=== PATIENT | female | born 1940 | race Caucasian/White ===

== ENCOUNTER 2025-01-09 16:46 | Emergency (ER) | payer MEDICARE, OTHER, SELFPAY ==
[2025-01-09 17:37] VITALS: BP 189/78
[2025-01-09 18:26] VITALS: BP 195/74; BMI 19.2
[2025-01-09 18:43] LABS: Urine Albumin Negative (Neg - Trace); Urine Bilirubin Negative (Negative); Urine Character Clear (Clear); Urine Color Yellow; Urine Glucose 4+ (Negative); Urine Ketone Negative (Negative); Urine Leukocyte Negative (Negative); Urine Nitrite Negative (Negative); Urine Occult Blood Negative (Negative); Urine Urobilinogen Negative (Neg - 1+)
[2025-01-09] MEDS: NORCO 5/325 1 TABLET PO (19:53)
--- NOTE | 2025-01-10 00:30 | ED.MUSCINJ ---
HPI-Injury
General
Chief Complaint: Musculo-Skeletal Complaint
Source: patient and family (daughter.)
Time Seen by Provider: 01/09/25 18:59
History of Present Illness-Injury
Is this injury a work related problem?: No
Is pt an associate of [facility]?: No
Initial Injury comments:
Patient to ED with complaint of sciatic like pain to left low back, buttocks, thigh. Daughter states symptms started approx 10 days ago. She was given rx for medrol dose pack 1 week ago by PCP. Initially she reported improvement but after course
was complete pain returned. Denies fever/chills, recent illness. No bowel or bladder issues. No weakness in extremities, no saddle parasthesia. Brought to ED by daughter for eval.
Past History
Past History
ED Past Medical History: HTN, Hypercholesterolemia, NIDDM and Hypothyroidism
ED Past Surgical History: None
Social History
Tobacco: Non-smoker
Injury Course
Orders/Labs/Results
Orders:
Orders
01/09/25 18:25
Urinalysis Reflex To Culture Urgent
Date Specimen was Collected: 01/09/25
Time Specimen was Collected: 18:21
01/09/25 18:46
CR Hip - LT w/wo Pel 2-3 Vw* Urgent
Comment:
Reason For Exam: pain
Include a pelvis x-ray?: Yes
01/09/25 19:45
Hydrocodone 5/APAP 325 [[place] 5/325] 1 tablet PO NOW STA
Abnormal Lab Results
01/09/25
18:25
Urine Glucose 4+ A
(Negative)
Update Note
Update Note:
Patient to ED for sciatic like pain to left lower back, radiating thru to LLE. No weakness in extremity. Sensation is intact. No concern for cauda equina. Will place on prednisone taper and give short course of pain medicatoin. Recommend
follow up with ortho. SHe was miriam galeano for followup. Given instructions on s/s to return to ED and she is agreeable to plan.
ED Attending Note
-
Portions of this chart may have been created with voice recognition software.� Occasional wrong word or��sound alike� substitutions may have occurred due to the inherent limitations of voice recognition software.
Discharge Plan
Departure
Patient Disposition: Home (Routine Discharge)
Date of Disposition: 01/09/25
Time of Disposition: 19:49
Patient with high blood pressure during this ER visit?: No
Condition: Good
Covid-19: Not Applicable
Discharge Problem:
Sciatic pain
Instructions: Ibuprofen, Sciatica - ED discharge instructions
Prescriptions:
New
hydrocodone-acetaminophen 5-325 mg tablet
1 tab PO Q4H PRN (Reason: Pain) Qty: 14 0RF
prednisone 10 mg Tablet
See Rx Instructions .ROUTE .COMPLEX Qty: 30 0RF
Rx Instructions:
Take By Mouth:
40 mg daily x3 days, 30 mg daily x3 days,
20 mg daily x3 days, 10 mg daily x3 days.
No Action
oxycodone-acetaminophen [Percocet] 5-325 mg tablet
1 tab PO Q6HPRN PRN (Reason: pain) Qty: 10 0RF
prednisone 20 mg tablet
20 mg PO BID 5 Days Qty: 10 0RF
Referrals:
UNKNOWN - PT DOES,NOT KNOW [Family Provider] -
Yaya Ordaz MD [Active] - Call in 1-3 days for appt
Interventions
Interventions:
*Risk Screen - Suicide Last Done: 01/09/25 17:41
*General Assessment Last Done: 01/09/25 17:41
*Neglect/Abuse Screening Last Done: 01/09/25 20:55
*ED- Fall Risk Assessment Last Done: 01/09/25 18:26
*ED COVID-19 Vaccine History Last Done: 01/09/25 18:26
*Nursing Disposition Last Done: 01/09/25 20:50
ED-Musculoskeletal Assessment Last Done: 01/09/25 18:26
Discharge Date and Time
Discharge Date/Time: 01/09/25 20:55
Print Language: URDU
== END 2025-01-09 20:55 | disposition home or self-care (01) ==
LOC: EMR 16:46
PROVIDERS: Emergency Medicine; EMERGENCY PHYSICIAN Student in an Organized Health Care Education/Training Program
DX: M54.40 Lumbago with sciatica, unspecified side (principal); M79.652 Pain in left thigh; I10 Essential (primary) hypertension; E78.00 Pure hypercholesterolemia, unspecified; E11.9 Type 2 diabetes mellitus without complications; E03.9 Hypothyroidism, unspecified
CPT/HCPCS: 99283; 73502; 81003